=== PATIENT | female | born 1970 | race Caucasian/White ===

== ENCOUNTER 2022-03-01 09:51 | Outpatient (CLI) | payer MEDICARE, MEDICAID ==
[2022-03-01 23:30] LABS: SARS-CoV-2 PCR by NAA Not Detected (NotDetected)
== END 2022-03-01 09:52 | disposition home or self-care (01) ==
LOC: LABBT 09:51
PROVIDERS: ATTEND Internal Medicine Gastroenterology
DX: Z12.11 Encounter for screening for malignant neoplasm of colon (principal); Z20.822 Contact with and (suspected) exposure to COVID-19
CPT/HCPCS: U0003; U0005

== ENCOUNTER 2022-03-04 07:09 | Day surgery (SDC) | payer MEDICARE, MEDICAID ==
[2022-03-02 10:56] VITALS: BMI 21.4
[2022-03-04] MEDS ORDERED: Ketamine 50 MG/ML (10ML VIAL) ONE (07:44)
[2022-03-04] MEDS ORDERED: Midazolam HCl 2 mg/2 ml Vial ONE (07:44)
[2022-03-04] MEDS ORDERED: PROPOFOL 200 MG/20 ML VIAL ONE (09:02)
== END 2022-03-04 11:10 | disposition home or self-care (01) ==
LOC: SDC 07:09
PROVIDERS: ATTEND Internal Medicine Gastroenterology
PROC: 0DBL8ZX Excision of Transverse Colon, Via Natural or Artificial Opening Endoscopic, Diagnostic (ICD-10-PCS; principal; 2022-03-04)
DX: Z12.11 Encounter for screening for malignant neoplasm of colon (principal); D12.3 Benign neoplasm of transverse colon; K63.89 Other specified diseases of intestine; Z79.899 Other long term (current) drug therapy
CPT/HCPCS: 45385; G0105; 88305; J2250; J2704